=== PATIENT | female | born 2000 | race Caucasian/White ===

== ENCOUNTER 2018-01-08 20:43 | Emergency (ER) | payer OTHER ==
[~2018-01-08] VITALS: Ht 165.1 cm; Wt 57.2 kg
[~2018-01-08 20:43] MED LIST: ACET-1256 PO; AMOX500C3 PO
[2018-01-08 21:37] VITALS: TEMP 36.7; Ht 165.1 cm; Wt 57.2 kg
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
[2018-01-08 23:51] VITALS: BP 127/85; PULSE 87; O2SAT 99
== END 2018-01-08 23:52 | disposition home or self-care (01) ==
LOC: C.EDB 20:44 → C.EDD 23:52
DX: S09.90XA Unspecified injury of head, initial encounter (principal); V89.2XXA Person injured in unspecified motor-vehicle accident, traffic, initial encounter